=== PATIENT | female | born 1950 | race Caucasian/White ===

== ENCOUNTER 2025-06-19 16:33 | Inpatient (IN) | payer MEDICARE, OTHER ==
[2025-06-20] MEDS ORDERED: Fioricet 325/50/40 mg Tablet PO PRN (14:48)
[2025-06-20] MEDS: Acetaminophen 325 MG TAB PO SCH (14:53)
[2025-06-20] MEDS: Gabapentin 300 MG CAP PO SCH (14:54)
[2025-06-20] MEDS: Senokot S 8.6-50 MG TAB PO PRN (18:29)
[2025-06-20] MEDS: HYDROcodone/Acetaminophen 7.5/325 mg Tablet PO PRN (18:32)
[2025-06-20] MEDS: Bupropion 150 MG SR.TAB PO SCH (21:25)
[2025-06-20] MEDS: Enoxaparin 30 MG (0.3 mL) SYRINGE SC SCH (21:28)
[2025-06-20] MEDS: Mometasone 100 MCG/PUFF (1 INHALER) INH SCH (21:28)
[2025-06-20] MEDS: Verapamil 120 MG SR.TAB PO SCH (21:30)
[2025-06-21 05:36] LABS: #Basophils 0.1 thou/uL (0.0-0.2); #Eosinophils 0.3 thou/uL (0.0-0.7); #Lymphocytes 1.5 thou/uL (1.20-3.40); #Monocytes 1.0 thou/uL (0.11-0.59); #Neutrophils 4.5 thou/uL (1.40-6.50); %Basophils 1.5 % (0.0-1.0); %Eosinophils 3.7 % (0.0-10.0); %Lymphocytes 19.8 % (21.0-51.0); %Monocytes 13.4 % (0.0-10.0); %Neutrophils 61.6 % (42.0-75.0); Hematocrit 35.9 % (36.0-47.0); Hemoglobin 12.0 g/dL (12.0-16.0); Mean Corpuscular Hemoglobin 29.5 pg (27.0-31.0); Mean Corpuscular Volume 88.2 fl (78.0-98.0); Platelet Count 321 10x3/uL (130-400); Red Blood Cell (RBC) Count 4.07 mill/uL (4.20-5.40); White Blood Cell (WBC) Count 7.4 10x3/uL (4.8-10.8)
[2025-06-21 05:58] LABS: ALT (SGPT) 13 U/L (Less than 34); AST (SGOT) 22 U/L (11-34); Albumin 2.1 g/dL (3.1-4.5); Alkaline Phosphatase 45 U/L (40-110); Anion Gap 15 mmol/L (10-20); BUN (Urea Nitrogen) 20 mg/dL (9.8-20.1); Bilirubin, Total 0.2 mg/dL (0.3-1.2); Calc. Creatinine Clearance 68 mL/min (70-130); Calcium 8.7 mg/dL (7.8-10.44); Carbon Dioxide 29 mmol/L (23-31); Chloride 101 mmol/L (98-107); Globulin 3.5 g/dL (2.4-3.5); Glucose 104 mg/dL (83-110); Potassium 4.5 mmol/L (3.5-5.1); Sodium 140 mmol/L (136-145)
[2025-06-21] MEDS: HYDROcodone/Acetaminophen 7.5/325 mg Tablet PO SCH (07:48)
[2025-06-21] MEDS: Lactulose 20 GM (30 mL) UDCUP PO SCH (08:36)
[2025-06-21] MEDS: Pantoprazole 40 MG DR.TAB PO SCH ×2 (08:38→22:00)
[2025-06-21] MEDS: Vibegron [Gemtesa] 75 MG Tablet PO SCH (08:42)
[2025-06-21] MEDS: Methocarbamol 500 MG TAB PO PRN (15:13)
[2025-06-22] MEDS: HYDROcodone/Acetaminophen 10/325 mg Tablet PO SCH (07:26)
[2025-06-22] MEDS: Methocarbamol 500 MG TAB PO SCH (08:19)
[2025-06-23] MEDS: Senokot S 8.6-50 MG TAB PO SCH (09:17)
[2025-06-23] MEDS: Vibegron [Gemtesa] 75 MG Tablet PO SCH (20:18)
[2025-06-25] MEDS: ESTROGEN ESTER PO SCH (11:00)
[2025-06-25] MEDS: TESTOSTERONE PO SCH (11:00)
[2025-06-26] MEDS ORDERED: TESTOSTERONE PO SCH (09:00)
[2025-06-26] MEDS ORDERED: ESTROGEN ESTER PO SCH (09:00)
[2025-06-29 03:46] VITALS: BMI 27.7
[2025-06-29 05:38] LABS: #Basophils 0.1 thou/uL (0.0-0.2); #Eosinophils 0.3 thou/uL (0.0-0.7); #Lymphocytes 1.8 thou/uL (1.20-3.40); #Monocytes 0.8 thou/uL (0.11-0.59); #Neutrophils 2.5 thou/uL (1.40-6.50); %Basophils 1.4 % (0.0-1.0); %Eosinophils 5.8 % (0.0-10.0); %Lymphocytes 32.9 % (21.0-51.0); %Monocytes 14.3 % (0.0-10.0); %Neutrophils 45.6 % (42.0-75.0); Hematocrit 31.6 % (36.0-47.0); Hemoglobin 11.0 g/dL (12.0-16.0); Mean Corpuscular Hemoglobin 30.5 pg (27.0-31.0); Mean Corpuscular Volume 87.6 fl (78.0-98.0); Platelet Count 396 10x3/uL (130-400); Red Blood Cell (RBC) Count 3.61 mill/uL (4.20-5.40); White Blood Cell (WBC) Count 5.5 10x3/uL (4.8-10.8)
[2025-06-29 05:52] LABS: ALT (SGPT) 47 U/L (Less than 34); AST (SGOT) 32 U/L (11-34); Albumin 2.2 g/dL (3.1-4.5); Alkaline Phosphatase 55 U/L (40-110); Anion Gap 12 mmol/L (10-20); BUN (Urea Nitrogen) 25 mg/dL (9.8-20.1); Bilirubin, Total 0.1 mg/dL (0.3-1.2); Calc. Creatinine Clearance 69 mL/min (70-130); Calcium 8.4 mg/dL (7.8-10.44); Carbon Dioxide 26 mmol/L (23-31); Chloride 106 mmol/L (98-107); Globulin 2.9 g/dL (2.4-3.5); Glucose 90 mg/dL (83-110); Potassium 4.8 mmol/L (3.5-5.1); Sodium 139 mmol/L (136-145)
[2025-07-02] MEDS: Calcium Carbonate 500 MG ChewTAB PO PRN (14:43)
[2025-07-03 07:14] VITALS: BP 133/82; TEMP 97.9
[2025-07-03 08:36] VITALS: BMI 27.7
== END 2025-07-03 10:45 | disposition home health service (06) | DRG 945 ==
LOC: NAV ACUTE 06-20 14:14
PROVIDERS: ADMIT Family Medicine; ATTEND Family Medicine
PROC: F07Z5ZZ Bed Mobility Treatment (ICD-10-PCS; principal; 2025-06-20)
PROC: F08Z0ZZ Bathing/Showering Techniques Treatment (ICD-10-PCS; 2025-06-20)
PROC: 5A09357 Assistance with Respiratory Ventilation, Less than 24 Consecutive Hours, Continuous Positive Airway Pressure (ICD-10-PCS; 2025-06-27)
PROC: 3E03329 Introduction of Other Anti-infective into Peripheral Vein, Percutaneous Approach (ICD-10-PCS; 2025-06-29)
DX: R53.81 Other malaise (principal); L03.115 Cellulitis of right lower limb; S72.001G Fracture of unspecified part of neck of right femur, subsequent encounter for closed fracture with delayed healing; I10 Essential (primary) hypertension; E03.9 Hypothyroidism, unspecified; D64.9 Anemia, unspecified; M79.7 Fibromyalgia; Z98.890 Other specified postprocedural states; Z79.899 Other long term (current) drug therapy; K59.00 Constipation, unspecified; M94.0 Chondrocostal junction syndrome [Tietze]; K21.9 Gastro-esophageal reflux disease without esophagitis; G47.00 Insomnia, unspecified; N32.81 Overactive bladder; F41.1 Generalized anxiety disorder; Z79.890 Hormone replacement therapy
CPT/HCPCS: 36415; 80053; 85025; 94640; J1650; Q0162